=== PATIENT | female | born 1985 | race Caucasian/White ===

== ENCOUNTER 2017-04-02 01:30 | Emergency (ER) | payer OTHER ==
[~2017-04-02] VITALS: Ht 165.1 cm; Wt 68.0 kg
[2017-04-02 02:00] LABS: BILIRUBIN,URINE NEGATIVE (NEG); GLUCOSE,URINE NEGATIVE (NEG); NITRITE,URINE NEGATIVE (NEG); PROTEIN,URINE NEGATIVE (NEG-TRACE); UROBILINOGEN,URINE 0.2 mg/dL (0.2 mg/dL)
[2017-04-02] MEDS ORDERED: IV NORMAL SALINE 1000ML BAG 1,000 ML IV ONE (02:00)
[2017-04-02] MEDS ORDERED: KETOROLAC 30 MG/ML INJ. IV ONE (02:00)
[2017-04-02] MEDS ORDERED: methylPREDNISolone SOD SUCC PF 125 MG/2 ML VIAL. IV ONE (02:00)
[2017-04-02] MEDS ORDERED: PROCHLORPERAZINE 10 MG/2 ML VIAL. IV ONE (02:00)
[2017-04-02] MEDS ORDERED: diphenhydrAMINE 50 MG/ML VIAL IVP ONE (02:00)
[2017-04-02 02:08] LABS: BACTERIA,URINE FEW /HPF (0-FEW); RBC,URINE TNTC /HPF (0-2); SQUAMOUS EPITHELIAL CELL,UR FEW /LPF; WBC,URINE OCC /HPF (0-4)
[2017-04-02 03:00] VITALS: BP 109/57
--- NOTE | 2017-04-02 03:08 | PHYS DOC ---
Past Medical History Past Medical History: Migraines Past Surgical History: Other Additional Past Surgical Histo: D&C Alcohol Use: Rarely Drug Use: None Adult General Chief Complaint Chief Complaint: HEADACHE HPI HPI Patient is a 31 year old female who presents with migraine headache. The patient reports 2 day history of occipital throbbing headache similar to previous migraine. She reports nausea, photophobia, phonophobia. Denies fevers /chills, neck stiffness, vision changes, vomiting, extremity numbness/weakness. Not sudden in onset, not the worst headache of her life. She has history of migraine for which she took diazepam & benadryl at home. Symptoms not relieved. She has previous history of ED visit for similar symptoms. Review of Systems Review of Systems Constitutional: Denies fever or chills Eyes: Denies change in visual acuity HENT: Denies nasal congestion or sore throat Respiratory: Denies cough or shortness of breath Cardiovascular: Denies chest pain GI: Reports nausea. Denies abdominal pain, vomiting : Denies dysuria or hematuria Musculoskeletal: Denies back pain or joint pain Integument: Denies rash or skin lesions Neurologic: Reports headache, denies focal weakness or sensory changes Current Medications Current Medications Current Medications Medications (Trade) Dose Ordered Sig/Rafael Start Time Stop Time Status Last Admin Dose Admin Diphenhydramine HCl (Benadryl) 25 mg 1X ONCE 04/02/17 02:00 04/02/17 02:01 DC 04/02/17 02:17 25 MG Ketorolac Tromethamine (Toradol) 30 mg 1X ONCE 04/02/17 02:00 04/02/17 02:01 DC 04/02/17 02:16 30 MG Methylprednisolone Sodium Succinate (SOLU-Medrol 125MG VIAL) 125 mg 1X ONCE 04/02/17 02:00 04/02/17 02:01 DC 04/02/17 02:16 125 MG Prochlorperazine Edisylate (Compazine) 10 mg 1X ONCE 04/02/17 02:00 04/02/17 02:01 DC 04/02/17 02:16 10 MG Sodium Chloride 1,000 ml @ 1,000 mls/hr 1X ONCE 04/02/17 02:00 04/02/17 02:59 DC 04/02/17 02:17 1,000 MLS/HR Allergies Allergies Allergies Coded Allergies Type Severity Reaction Last Updated Verified No Known Drug Allergies 03/13/15 No Physical Exam Physical Exam Constitutional: Well developed, well nourished, no acute distress, non-toxic appearance. resting in a dark room. HENT: Normocephalic, atraumatic, bilateral external ears normal, oropharynx moist, nose normal. Eyes: PERRLA, EOMI, conjunctiva normal, no discharge. Neck: supple, no stridor. no meningismus Cardiovascular: RRR, no murmurs, no edema. Lungs & Thorax: LCTAB, no wheezing, no respiratory distress. Abdomen: soft, nontender, nondistended. Skin: Warm, dry, no erythema, no rash. Back: No tenderness. Extremities: No tenderness, no edema. Neurologic: Alert and oriented X 3, CN2-12 grossly intact, symmetric strength/ sensation to upper & lower extremities, no focal deficits noted. Psychologic: Affect normal, judgement normal, mood normal. Current Patient Data Vital Signs Vital Signs Date Time Temp Pulse Resp B/P (MAP) Pulse Ox O2 Delivery O2 Flow Rate FiO2 04/02/17 03:00 71 16 97 04/02/17 01:52 97.9 117/60 (79) Room Air 97.9 Lab Values Laboratory Tests Test 04/02/17 01:35 04/02/17 01:51 Urine Collection Type Unknown Urine Color Yellow Urine Clarity Clear Urine pH 6.0 Urine Specific Sunbright 1.025 Urine Protein Negative mg/dL (NEG-TRACE) Urine Glucose (UA) Negative mg/dL (NEG) Urine Ketones (Stick) Negative mg/dL (NEG) Urine Blood Large (NEG) Urine Nitrite Negative (NEG) Urine Bilirubin Negative (NEG) Urine Urobilinogen Dipstick 0.2 mg/dL (0.2 mg/dL) Urine Leukocyte Esterase Negative (NEG) Urine RBC Tntc /HPF (0-2) Urine WBC Occ /HPF (0-4) Urine Squamous Epithelial Cells Few /LPF Urine Bacteria Few /HPF (0-FEW) Urine Mucus Mod /LPF POC Urine HCG, Qualitative Hcg negative (Negative) EKG EKG [] Radiology/Procedures Radiology/Procedures [] Course & Med Decision Making Course & Med Decision Making Pertinent Labs and Imaging studies reviewed. (See chart for details) The patient presents with usual migraine headache not relieved by home meds. Gave IV fluids, toradol, compazine, benadryl. UA shows blood consistent with reported menses. She felt better after treatment & requested discharge home. Recommend supportive care with rest, hydration, home meds. Follow up with PCP in 2-3 days for additional concerns. Come back for sudden onset severe headache or worst headache of her life, focal neuro deficit, any otherwise worsening condition. Discharged home in stable condition. [] Dragon Disclaimer Dragon Disclaimer This electronic medical record was generated, in whole or in part, using a voice recognition dictation system. Departure Departure Impression: Primary Impression: Migraine headache Disposition: HOME, SELF-CARE Condition: IMPROVED Patient Instructions: Migraine Headache, [id number] Additional Instructions: You were seen in the emergency department today for migraine headache. Symptoms improved with treatment here. Please rest, drink fluids, take home medications as prescribed. Follow up with primary care physician this week if not improving. Come back for worst headache of your life, sudden onset severe headache, numbness or weakness in arms or legs, any otherwise worsening condition. MAGEN SÁNCHEZ MD Apr 02, 2017 03:07
== END 2017-04-02 03:20 | disposition home or self-care (01) ==
LOC: ER 01:30
DX: G43.909 Migraine, unspecified, not intractable, without status migrainosus (principal)
CPT/HCPCS: 81001; 81025; 96361; 96374; 96375; 99284; J0780; J1200; J1885; J2930; J7030

== ENCOUNTER 2019-06-11 03:58 | Emergency (ER) | payer OTHER ==
[~2019-06-11] VITALS: Ht 167.6 cm; Wt 74.8 kg
[2019-06-11 04:05] VITALS: BP 104/68
[2019-06-11] MEDS ORDERED: METOCLOPRAMIDE HCL 10 MG/2 ML VIAL. IVP ONE (04:30)
[2019-06-11] MEDS ORDERED: KETOROLAC 30 MG/ML VIAL. IVP ONE (04:30)
[2019-06-11] MEDS ORDERED: diphenhydrAMINE 50 MG/ML VIAL IVP ONE (04:30)
--- NOTE | 2019-06-11 04:30 | PHYS DOC ---
Past Medical History Past Medical History: Migraines Past Surgical History: Other Additional Past Surgical Histo: D&C Alcohol Use: None Drug Use: None Adult General Chief Complaint Chief Complaint: HEADACHE HPI HPI 33-year-old female presents to the emergency department with complaints of migraine headache. She has a history of migraines takes Maxalt as well as Benadryl as needed. She states this headache started around 5:55 PM is been progressive. She describes photophobia. He describes dizziness. No nausea, vomiting. She states this headache is similar to her regular migraines. Nothing is improved her headache. She states she has an allergy to narcotic medications. She is afebrile, blood pressure 104/68, heart rate 82. She denies any chest pain, shortness breath, no abdominal discomfort or dysuria. Review of Systems Review of Systems Constitutional: Denies fever or chills [] Eyes: Denies change in visual acuity, redness, + photophobia[] Respiratory: Denies cough or shortness of breath [] Cardiovascular: No additional information not addressed in HPI [] GI: Denies abdominal pain, nausea, vomiting, bloody stools or diarrhea [] Musculoskeletal: Denies back pain or joint pain [] Integument: Denies rash or skin lesions [] Neurologic: + headache, no focal weakness or sensory changes [] All other systems were reviewed and found to be within normal limits, except as documented in this note. Current Medications Current Medications Current Medications Medications (Trade) Dose Ordered Sig/Rafael Start Time Stop Time Status Last Admin Dose Admin Diphenhydramine HCl (Benadryl) 50 mg 1X ONCE 06/11/19 04:30 06/11/19 04:31 DC 06/11/19 04:44 50 MG Ketorolac Tromethamine (Toradol 30mg Vial) 30 mg 1X ONCE 06/11/19 04:30 06/11/19 04:31 DC 06/11/19 04:45 30 MG Metoclopramide HCl (Reglan Vial) 10 mg 1X ONCE 06/11/19 04:30 06/11/19 04:31 DC 06/11/19 04:44 10 MG Allergies Allergies Allergies Coded Allergies Type Severity Reaction Last Updated Verified bee venom protein (honey bee) Allergy Severe 06/11/19 Yes Physical Exam Physical Exam Constitutional: Well developed, well nourished, no acute distress, non-toxic appearance. [] Eyes: PERRLA, EOMI, conjunctiva normal, no discharge. [] Neck: Normal range of motion, no tenderness, supple, no stridor. [] Cardiovascular:Heart rate regular rhythm, no murmur [] Lungs & Thorax: Bilateral breath sounds clear to auscultation [] Abdomen: Bowel sounds normal, soft, no tenderness, no masses, no pulsatile ma sses. [] Skin: Warm, dry, no erythema, no rash. [] Extremities: No tenderness, no edema. [] Neurologic: Alert and oriented X 3, no focal deficits noted. [] Psychologic: Affect normal, judgement normal, mood normal. [] Current Patient Data Vital Signs Vital Signs Date Time Temp Pulse Resp B/P (MAP) Pulse Ox O2 Delivery O2 Flow Rate FiO2 06/11/19 04:05 98.5 76 16 104/68 (80) 95 Room Air 98.5 EKG EKG [] Radiology/Procedures Radiology/Procedures [] Course & Med Decision Making Course & Med Decision Making Pertinent Labs and Imaging studies reviewed. (See chart for details) []33-year-old female presents to the emergency department with complaints of jame cony headache. She has a history of migraines takes Maxalt as well as Benadryl as needed. She states this headache started around 5:55 PM is been progressive. She describes photophobia. He describes dizziness. No nausea, vomiting. She states this headache is similar to her regular migraines. Nothing is improved her headache. She states she has an allergy to narcotic medications. She is afebrile, blood pressure 104/68, heart rate 82. She denies any chest pain, shortness breath, no abdominal discomfort or dysuria. Toradol/Reglan/Benadryl IVP Reassessment - 05 - pain improved Recommend dc and follow up with PCP as needed Miya Disclaimer Dragon Disclaimer This electronic medical record was generated, in whole or in part, using a voice recognition dictation system. Departure Departure Impression: Primary Impression: Migraine Disposition: 01 HOME, SELF-CARE Condition: IMPROVED Referrals: AMAURI ROY MD (PCP) Patient Instructions: Migraine Headache, [id number] Additional Instructions: Recommend follow up with PCP 3 - 5 days Return to the ER with worsening symptoms, intractable pain, fever, altered mental status Tylenol/Motrin as needed for pain Problem Qualifiers Primary Impression: Migraine Migraine type: without aura Status migrainosus presence: with status migrainosus Intractability: intractable Qualified Codes: G43.011 - Migraine without aura, intractable, with status migrainosus CECY CROWDER MD Jun 11, 2019 04:30
== END 2019-06-11 05:17 | disposition home or self-care (01) ==
LOC: ER 03:58
DX: G43.909 Migraine, unspecified, not intractable, without status migrainosus (principal); H53.149 Visual discomfort, unspecified; R42 Dizziness and giddiness; Z98.890 Other specified postprocedural states; Z79.899 Other long term (current) drug therapy; Z91.030 Bee allergy status
CPT/HCPCS: 96374; 96375; 99284; J1200; J1885; J2765